=== PATIENT | male | born 1960 | race Two or more races ===

== ENCOUNTER 2022-11-27 21:17 | Emergency (ER) | payer BC ==
[~2022-11-27] VITALS: Ht 177.8 cm; Wt 81.6 kg
== END 2022-11-28 05:37 | disposition home or self-care (01) ==
LOC: ER 21:17
DX: R10.84 Generalized abdominal pain (principal); R11.10 Vomiting, unspecified; Z88.8 Allergy status to other drugs, medicaments and biological substances; Z20.822 Contact with and (suspected) exposure to COVID-19

== ENCOUNTER 2022-12-03 03:49 | Emergency (ER) | payer BC ==
[~2022-12-03] VITALS: Ht 177.8 cm; Wt 76.2 kg
== END 2022-12-03 07:23 | disposition home or self-care (01) ==
LOC: ER 03:49
DX: R30.0 Dysuria (principal); Z88.2 Allergy status to sulfonamides; Z85.46 Personal history of malignant neoplasm of prostate